=== PATIENT | male | born 1990 | race Hispanic/Latino ===

== ENCOUNTER 2019-11-18 | Emergency (ER) | payer OTHER ==
[2019-11-18] MEDS ORDERED: BENADRYL 50MG C50 MG PO (14:55)
[2019-11-18] MEDS ORDERED: PEPCID20 MG PO (14:56)
[2019-11-18] MEDS ORDERED: MEDDOSEPAK PO (14:57)
== END 2019-11-18 15:23 | disposition home or self-care (01) | DRG 918 ==
DX: T60.91XA Toxic effect of unspecified pesticide, accidental (unintentional), initial encounter (principal); L24.5 Irritant contact dermatitis due to other chemical products